=== PATIENT | male | born 1980 | race Caucasian/White ===

== ENCOUNTER 2021-11-11 10:57 | Outpatient (CLI) | payer BC, SELFPAY | END 2021-11-11 23:59 | disposition home or self-care (01) | LOC: LABSPEC 11:18 | PROVIDERS: Referring Provider Otolaryngology; Visit Provider Otolaryngology | DX: Z20.822 Contact with and (suspected) exposure to COVID-19 (principal) | CPT/HCPCS: 87635; U0003; U0005 ==